=== PATIENT | female | born 2000 | race African-American/Black ===

== ENCOUNTER 2021-06-24 10:33 | Emergency (ER) | payer SELFPAY ==
[2021-06-24 11:39] LABS: #Eosinphils 0.1 10x3/uL (0.0-0.5); #Monocytes 0.4 10x3/uL (0.0-1.1); %Basophils 0.4 % (0.0-2.0); %Eosinophils 0.6 % (0.0-6.0); %Lymphocytes 23.5 % (18.0-47.0); %Monocytes 4.8 % (0.0-10.0); %Neutrophils 70.3 % (40.0-75.0); Hemoglobin 12.9 g/dL (12.0-15.5); Mean Corpuscular Hemoglobin 27.4 pg (27.0-33.0); Mean Corpuscular Volume 85.7 fl (81.6-98.3); Mean Platelet Volume 9.9 fl (7.4-10.4); Platelet Count 350 10x3/uL (150-450); RBC Distribution Width 14.2 % (11.5-14.5); White Blood Cell (WBC) Count 8.5 10x3/uL (3.5-10.5)
[2021-06-24 11:46] LABS: BHCG - Serum Negative (NEGATIVE); Pregs Control Background? CLEAR/WHITE (CLR/WHITE); Pregs Control Bar Appear? YES (CONTROL BAR)
[2021-06-24 11:53] LABS: ALT (SGPT) 18 U/L (8-55); AST (SGOT) 21 U/L (5-34); Albumin 4.7 g/dL (3.5-5.0); Alkaline Phosphatase 121 U/L (40-110); Anion Gap 14 mmol/L (10-20); BUN (Urea Nitrogen) 8 mg/dL (7.0-18.7); Bilirubin, Total 0.5 mg/dL (0.2-1.2); Calc. Creatinine Clearance 0 mL/min (70-130); Calcium 10.3 mg/dL (7.8-10.44); Carbon Dioxide 25 mmol/L (22-29); Chloride 105 mmol/L (98-107); Globulin 3.5 g/dL (2.4-3.5); Glucose 88 mg/dL (70-105); Potassium 4.3 mmol/L (3.5-5.1); Protein, Total 8.2 g/dL (6.0-8.3); Sodium 140 mmol/L (136-145)
[2021-06-24 12:19] LABS: Bilirubin Neg (Negative); Blood, Urine 150 (Negative); Clarity Clear (Clear); Glucose, Urine (Dipstick) Normal (Negative); Ketone, Urine Negative (Negative); Leukocyte Negative (Negative); Nitrite Positive (Negative); Protein, Urine (Dipstick) Negative (Neg-Trace); Urobilinogen Normal mg/dL (Less than 2)
[2021-06-24 12:26] LABS: RBC/HPF 0-3 HPF (0-3)
[2021-06-24 12:27] LABS: Bacteria/HPF 3+ HPF (None Seen); Mucous/LPF Rare LPF (<2+); Squamous Epithelial 0-3 HPF (0-3); WBC/HPF 0-3 HPF (0-3)
== END 2021-06-24 12:36 | disposition home or self-care (01) ==
LOC: CSHERS 10:33
DX: N94.6 Dysmenorrhea, unspecified (principal); N39.0 Urinary tract infection, site not specified; Z97.5 Presence of (intrauterine) contraceptive device
CPT/HCPCS: 80053; 81003; 81015; 84703; 85025; 87077; 87086; 87186; 99284

== ENCOUNTER 2022-04-12 19:29 | Emergency (ER) | payer SELFPAY ==
[2022-04-12] MEDS ORDERED: Azithromycin 250 MG TAB ONE (22:39)
[2022-04-12] MEDS ORDERED: cefTRIAXone\\ROCEPHIN 250 MG VIAL ONE (22:39)
[2022-04-12] MEDS ORDERED: Ibuprofen 200 MG TAB ONE (22:39)
[2022-04-12] MEDS ORDERED: Lidocaine 1% MPF 2 ML VIAL ONE (22:40)
[2022-04-12 23:56] LABS: Bilirubin Neg (Negative); Blood, Urine 25 (Negative); Clarity Cloudy (Clear); Glucose, Urine (Dipstick) Normal (Negative); Ketone, Urine 5 mg/dL (Negative); Leukocyte 25 (Negative); Nitrite Positive (Negative); Protein, Urine (Dipstick) 15 mg/dl (Neg-Trace)
[2022-04-13 00:18] LABS: Bacteria/HPF 4+ HPF (None Seen); RBC/HPF 0-3 HPF (0-3); Squamous Epithelial 0-3 HPF (0-3)
[2022-04-14 15:49] LABS: Chlam.trachomatis by PCR,Urine DETECTED (NotDetected)
== END 2022-04-13 00:19 | disposition home or self-care (01) ==
LOC: CSHERS 19:29
DX: U07.1 COVID-19 (principal); N30.00 Acute cystitis without hematuria; Z20.2 Contact with and (suspected) exposure to infections with a predominantly sexual mode of transmission
CPT/HCPCS: 81003; 81015; 87081; 87430; 87491; 87591; 87804; 96372; 99283; J0696; U0003; U0005

== ENCOUNTER 2022-11-18 17:21 | Emergency (ER) | payer SELFPAY ==
[2022-11-18 18:28] LABS: SARS-CoV-2 NAA Rapid Test Not Detected (NotDetected)
[2022-11-18] MEDS ORDERED: Dexamethasone 10 MG/ML VIAL ONE (21:57)
== END 2022-11-18 21:59 | disposition home or self-care (01) ==
LOC: CSHERS 17:21
DX: J02.9 Acute pharyngitis, unspecified (principal); R11.2 Nausea with vomiting, unspecified; Z20.822 Contact with and (suspected) exposure to COVID-19
CPT/HCPCS: 87081; 87430; 87804; 99283; J1100; U0002

== ENCOUNTER 2023-10-26 16:17 | Emergency (ER) | payer OTHER, SELFPAY ==
[2023-10-26] MEDS ORDERED: Lidocaine 1% (PF) 30 ML VIAL ONE (16:33)
[2023-10-26] MEDS ORDERED: Boostrix 0.5 ML (Tdap) VIAL (>/=7 yrs of age) ONE (16:33)
[2023-10-26] MEDS ORDERED: Bacitracin 1 PK ONE (16:53)
== END 2023-10-26 16:56 | disposition home or self-care (01) ==
LOC: CSHERS 16:17
DX: S61.411A Laceration without foreign body of right hand, initial encounter (principal); Z23 Encounter for immunization; W26.0XXA Contact with knife, initial encounter; Y99.0 Civilian activity done for income or pay
CPT/HCPCS: 12001; 90471; 90715; J2001